=== PATIENT | female | born 1980 | race Caucasian/White ===

== ENCOUNTER 2017-11-25 13:17 | Emergency (ER) | payer SELFPAY ==
[~2017-11-25] VITALS: Ht 167.6 cm; Wt 52.2 kg
[2017-11-25 13:20] VITALS: BP 119/86
--- NOTE | 2017-11-25 13:32 | NUR ---
11 STITCHES REMOVED. NO NOTED BLEEDING. NO REDNESS AND SWELLING
== END 2017-11-25 13:43 | disposition home or self-care (01) ==
LOC: ER 13:20
DX: S01.112D Laceration without foreign body of left eyelid and periocular area, subsequent encounter (principal); Z98.82 Breast implant status; Z88.5 Allergy status to narcotic agent; X58.XXXD Exposure to other specified factors, subsequent encounter
CPT/HCPCS: A4606; Z7502; Z7610

== ENCOUNTER 2018-12-19 23:30 | Emergency (ER) | payer SELFPAY ==
[~2018-12-19] VITALS: Ht 167.6 cm; Wt 52.2 kg
[2018-12-19 23:49] VITALS: BP 109/76
[2018-12-20] MEDS ORDERED: LIDOCAINE 1%-EPI 1:100,000 20 ML VIAL ONE (00:45)
[2018-12-20] MEDS ORDERED: HYDROMORPHONE 1 MG/1 ML DISP.SYRIN ONE (00:46)
[2018-12-20] MEDS ORDERED: HYDROMORPHONE 1 MG/1 ML DISP.SYRIN IM ONE (01:00)
[2018-12-20] MEDS ORDERED: LIDOCAINE 1%-EPI 1:100,000 20 ML VIAL TP ONE (01:00)
[2018-12-20] MEDS ORDERED: SULFAMETH/TRIMETH 800/160 MG 1 UDTAB TABLET PO ONE (01:30)
[2018-12-20] MEDS ORDERED: CEPHALEXIN MONOHYDRATE 500 MG CAPSULE PO ONE ×2 (01:30→01:37)
[2018-12-20] MEDS ORDERED: SULFAMETH/TRIMETH 800/160 MG 1 UDTAB TABLET ONE (01:38)
--- NOTE | 2018-12-20 01:46 | NUR ---
Patient discharged to home in stable condition. Written and verbal after care instructions given. Patient verbalizes understanding of instruction. PT AMBULATORY WITH STEADY GAIT.
== END 2018-12-20 01:49 | disposition home or self-care (01) ==
LOC: ER 23:45
DX: L02.232 Carbuncle of back [any part, except buttock and flank] (principal); F11.10 Opioid abuse, uncomplicated; F17.200 Nicotine dependence, unspecified, uncomplicated; Z88.5 Allergy status to narcotic agent; Z41.1 Encounter for cosmetic surgery
CPT/HCPCS: 10060; 96372; 99283; A6403 ×2; A6407; J1170; J3490

== ENCOUNTER 2018-12-23 07:39 | Emergency (ER) | payer SELFPAY ==
[~2018-12-23] VITALS: Ht 167.6 cm; Wt 52.2 kg
[2018-12-23 07:45] VITALS: BP 119/90
== END 2018-12-23 08:41 | disposition home or self-care (01) ==
LOC: ER 07:39
DX: A49.02 Methicillin resistant Staphylococcus aureus infection, unspecified site (principal); F17.200 Nicotine dependence, unspecified, uncomplicated; Z98.890 Other specified postprocedural states; Z88.6 Allergy status to analgesic agent
CPT/HCPCS: 99282; A6402

== ENCOUNTER 2019-06-13 07:29 | Emergency (ER) | payer MEDICAID ==
[~2019-06-13] VITALS: Ht 167.6 cm; Wt 52.2 kg
[2019-06-13 07:39] VITALS: BP 115/88
--- NOTE | 2019-06-13 07:42 | NUR ---
AT BEDSIDE FOR EVAL.
== END 2019-06-13 07:54 | disposition home or self-care (01) ==
LOC: ER 07:36
DX: L03.116 Cellulitis of left lower limb (principal); L03.115 Cellulitis of right lower limb; F17.200 Nicotine dependence, unspecified, uncomplicated; Z98.890 Other specified postprocedural states; Z88.6 Allergy status to analgesic agent

== ENCOUNTER 2019-07-22 05:11 | Emergency (ER) | payer MEDICAID ==
[~2019-07-22] VITALS: Ht 167.6 cm; Wt 52.2 kg
[2019-07-22 05:19] VITALS: BP 126/72
== END 2019-07-22 06:20 | disposition home or self-care (01) ==
LOC: ER 05:17
DX: T78.40XA Allergy, unspecified, initial encounter (principal); F17.200 Nicotine dependence, unspecified, uncomplicated; Z98.890 Other specified postprocedural states; Z88.8 Allergy status to other drugs, medicaments and biological substances; X58.XXXA Exposure to other specified factors, initial encounter

== ENCOUNTER 2020-03-08 22:41 | Emergency (ER) | payer MEDICAID ==
[~2020-03-08] VITALS: Ht 167.6 cm; Wt 52.2 kg
[2020-03-08 22:49] VITALS: BP 125/80
--- NOTE | 2020-03-08 23:17 | NUR ---
DR LAN AT BEDSIDE
--- NOTE | 2020-03-08 23:28 | NUR ---
URINE COLLECTED AND SENT TO LAB
[2020-03-08 23:39] LABS: APPEARANCE,URINE CLEAR (CLEAR); BILIRUBIN,URINE NEGATIVE (NEGATIVE); BLOOD, URINE NEGATIVE Ery/uL (NEGATIVE); COLOR,URINE YELLOW (YELLOW); KETONES,URINE NEGATIVE (NEGATIVE); LEUKOCYTE ESTERASE ,URINE TRACE (NEGATIVE); NITRITE, URINE NEGATIVE (NEGATIVE); PROTEIN,URINE NEGATIVE (NEGATIVE); UGLUCOSE NEGATIVE (NEGATIVE); UROBILINOGEN,URINE 0.2 EU/dL (0.2)
[2020-03-08 23:43] LABS: BACTERIA,URINE Few /HPF (None Seen); RBC,URINE 0-2 /HPF (0-2); SQUAMOUS EPITHELIAL CELL,UR Moderate /HPF (None Seen)
--- NOTE | 2020-03-09 00:12 | NUR ---
Patient discharged to home in stable condition. Written and verbal after care instructions given. Patient verbalizes understanding of instruction.
== END 2020-03-09 00:13 | disposition home or self-care (01) ==
LOC: ER 22:45
DX: B37.3 Candidiasis of vulva and vagina (principal); F17.200 Nicotine dependence, unspecified, uncomplicated; Z98.890 Other specified postprocedural states; Z88.6 Allergy status to analgesic agent
CPT/HCPCS: 81000-TC; 84703-TC; 87086-TC; 87491; 87591

== ENCOUNTER 2020-05-08 13:00 | Emergency (ER) | payer MEDICAID ==
[~2020-05-08] VITALS: Ht 167.6 cm; Wt 52.2 kg
--- NOTE | 2020-05-08 13:00 | NUR ---
BIB SELF C/O VAGINAL ITCHING. VS CHECKED. AWAITING MD GOLDSMITH.
[2020-05-08 13:06] VITALS: BP 126/81
--- NOTE | 2020-05-08 13:10 | NUR ---
URINE COLLECTED SENT TO LAB
[2020-05-08 13:28] LABS: BILIRUBIN,URINE Negative (NEGATIVE); BLOOD, URINE Negative Ery/uL (NEGATIVE); COLOR,URINE YELLOW (YELLOW); LEUKOCYTE ESTERASE ,URINE Small (NEGATIVE); NITRITE, URINE Negative (NEGATIVE); PH,URINE 6.5 (5.0-8.0); PROTEIN,URINE Negative (NEGATIVE); UGLUCOSE Negative (NEGATIVE); UROBILINOGEN,URINE 0.2 EU/dL (0.2)
[2020-05-08 13:37] LABS: BACTERIA,URINE Moderate /HPF (None Seen); RBC,URINE 0-2 /HPF (0-2); SQUAMOUS EPITHELIAL CELL,UR Moderate /HPF (None Seen)
== END 2020-05-08 13:53 | disposition home or self-care (01) ==
LOC: ER 13:05
DX: B37.3 Candidiasis of vulva and vagina (principal); Z41.1 Encounter for cosmetic surgery; Z88.5 Allergy status to narcotic agent
CPT/HCPCS: 81001; 84703-TC; 87086-TC

== ENCOUNTER 2023-02-05 04:25 | Emergency (ER) | payer MEDICAID ==
[~2023-02-05] VITALS: Ht 167.6 cm; Wt 49.9 kg
[2023-02-05 04:33] VITALS: BP 126/78; TEMP 98
[2023-02-05] MEDS ORDERED: TRIA15OI9 TP (04:43)
[2023-02-05 04:59] VITALS: O2SAT 98
== END 2023-02-05 04:59 | disposition home or self-care (01) ==
LOC: ER 04:31
DX: R21 Rash and other nonspecific skin eruption (principal); Z98.86 Personal history of breast implant removal; Z88.8 Allergy status to other drugs, medicaments and biological substances

== ENCOUNTER 2023-04-11 21:17 | Emergency (ER) | payer MEDICAID ==
[~2023-04-11] VITALS: Ht 167.6 cm; Wt 49.9 kg
[~2023-04-11 21:17] MED LIST: TRIA15OI9 TP
[2023-04-11 21:27] VITALS: BP 127/86; TEMP 98.9; O2SAT 100
[2023-04-11] MEDS ORDERED: PRED20TA PO (21:52)
[2023-04-11] MEDS ORDERED: predniSONE 20 MG TABLET ONE (21:53)
[2023-04-11] MEDS ORDERED: predniSONE 50 MG TABLET PO ONE (22:00)
== END 2023-04-11 22:03 | disposition home or self-care (01) ==
LOC: ER 21:19
DX: T78.40XA Allergy, unspecified, initial encounter (principal); F17.200 Nicotine dependence, unspecified, uncomplicated; X58.XXXA Exposure to other specified factors, initial encounter

== ENCOUNTER 2023-04-24 05:15 | Emergency (ER) | payer SELFPAY ==
[~2023-04-24] VITALS: Ht 167.6 cm; Wt 52.2 kg
[~2023-04-24 05:15] MED LIST changes: +PRED20TA PO
[2023-04-24 05:29] VITALS: BP 125/85; TEMP 98.2
[2023-04-24] MEDS ORDERED: HYDR28.32 TP (05:52)
[2023-04-24] MEDS ORDERED: FLUC150T PO (05:55)
[2023-04-24 05:59] VITALS: O2SAT 100
== END 2023-04-24 05:59 | disposition home or self-care (01) ==
LOC: ER 05:18
DX: H01.9 Unspecified inflammation of eyelid (principal); Z79.899 Other long term (current) drug therapy; Z60.2 Problems related to living alone

== ENCOUNTER 2023-05-14 02:49 | Emergency (ER) | payer SELFPAY ==
[~2023-05-14] VITALS: Ht 167.6 cm; Wt 47.6 kg
[~2023-05-14 02:49] MED LIST changes: +FLUC150T PO; +HYDR28.32 TP
[2023-05-14] MEDS ORDERED: PRED50TA PO (04:07)
[2023-05-14] MEDS ORDERED: predniSONE 20 MG TABLET ONE (04:13)
[2023-05-14] MEDS: predniSONE 50 MG TABLET PO ONE (04:15)
[2023-05-14 04:44] VITALS: BP 136/80; TEMP 98.1; O2SAT 100
== END 2023-05-14 04:45 | disposition home or self-care (01) ==
LOC: ER 02:52
DX: T78.40XA Allergy, unspecified, initial encounter (principal); Z88.8 Allergy status to other drugs, medicaments and biological substances; Z60.2 Problems related to living alone; X58.XXXA Exposure to other specified factors, initial encounter
CPT/HCPCS: 99283; J7512